=== PATIENT | male | born 1960 | race Caucasian/White ===

== ENCOUNTER → 2022-06-15 | Outpatient (CLI) | payer BC ==
--- NOTE | 2022-06-15 10:17 | US ---
EXAMINATION TYPE: US abdomen complete DATE OF EXAM: 06/15/2022 COMPARISON: NONE CLINICAL HISTORY: 61-year-old male R94.5 ABN LIVER FUNCTION STUDIES. TECHNIQUE: Multiple sonographic images of the abdomen are obtained. FINDINGS: EXAM MEASUREMENTS: Liver Length: 18.6 cm Gallbladder Wall: 0.2 cm CBD: 0.5 cm Spleen: 9.4 cm Right Kidney: 10.1 5.0 x 6.6 cm Left Kidney: 11.7 x 5.5 x 5.2 cm Pancreas: tail gassed out, visualized portions wnl Liver: Mildly enlarged. Echogenic parenchyma. A 3 cm area of fatty sparing near the kristopher hepatis. A dditional 1.7cm sparing adj to gallbladder. Gallbladder: wnl Evidence for sonographic Gonzalez's sign: no CBD: wnl Spleen: wnl Right Kidney: wnl Left Kidney: lobular cortex; wnl Upper IVC: wnl Abd Aorta: obscured by overlying bowel gas, visualized portions appear wnl IMPRESSION: 1. Mild hepatomegaly (18.6 cm) with at least moderate hepatic steatosis. Correlate with LFTs, lipid p rofile, and patient risk factors. 2. No gallstones or biliary ductal dilatation.
== END | disposition home or self-care (01) ==
LOC: RADUSWWP 07:41
PROVIDERS: ATTEND Family Medicine
DX: K76.0 Fatty (change of) liver, not elsewhere classified (principal); R94.5 Abnormal results of liver function studies
CPT/HCPCS: 76700

== ENCOUNTER 2023-10-09 10:24 | Day surgery (SDC) | payer BC ==
[~2023-10-09 10:24] MED LIST: LACTATED RINGERS 1,000 ML IV SCH
[2023-10-09 11:03] VITALS: RESP 16; TEMP 97.2
[2023-10-09] MEDS ORDERED: PROPOFOL 10 MG/ML 20 ML VIAL IV ONE (11:48)
--- NOTE | 2023-10-09 12:05 | P.PCN ---
Date of Procedure: 10/09/23 Procedure(s) Performed: BRIEF HISTORY: Patient is a 62-year-old pleasant white male scheduled for an elective colonoscopy as a part of screening for colon cancer. PROCEDURE PERFORMED: Colonoscopy with biopsy. PREOPERATIVE DIAGNOSIS: Screening for colon cancer. IV sedation per Anesthesia. PROCEDURE: After informed consent was obtained, the patient, was brought into the endoscopy unit. IV sedation was administered by Anesthesia under continuous monitoring. Digital rectal examination was normal. Initially the Olympus CF-160 flexible video colonoscope was then inserted in the rectum, gradually advanced into the cecum without any difficulty. Careful examination was performed as the scope was gradually being withdrawn. Ileocecal valve and the appendiceal orifice were visualized and appeared normal. Prep was excellent. Mucosa of the cecum, ascending colon, transverse colon, descending colon, appeared normal. In the sigmoid there was a 3 mm and a 4 mm polyp that was removed by cold biopsy. Scattered sigmoid diverticulosis seen. Rest of the sigmoid colon, and rectum appeared normal. Retroflexion was performed in the rectum and no lesions were seen. The patient tolerated the procedure well. IMPRESSION: 3 mm and 4 mm sigmoid polyp status post cold biopsy Scattered sigmoid diverticulosis RECOMMENDATIONS: Findings of this examination were discussed with the patient as well as his family.. He was advised to follow with the biopsy results. If the biopsy is adenoma he can have a repeat colonoscopy in 5 years.
[2023-10-09 12:39] VITALS: BP 136/82; PULSE 62
== END 2023-10-09 12:47 | disposition home or self-care (01) ==
LOC: ORWHC2ENDO 10:24
PROVIDERS: ATTEND Internal Medicine Gastroenterology
DX: Z12.11 Encounter for screening for malignant neoplasm of colon (principal); K63.5 Polyp of colon; K57.30 Diverticulosis of large intestine without perforation or abscess without bleeding; I10 Essential (primary) hypertension; Z88.1 Allergy status to other antibiotic agents; Z79.82 Long term (current) use of aspirin; Z79.899 Other long term (current) drug therapy
CPT/HCPCS: 88305; 45380; J2704